=== PATIENT | male | born 1995 | race Hispanic/Latino ===

== ENCOUNTER → 2023-11-26 | Outpatient (CLI) | payer SELFPAY ==
[2023-11-26 17:15] LABS: THYROID STIMULATING HORMONE 1.028 uIU/ML (0.55-4.78)
== END ==
LOC: M LAB 15:48
PROVIDERS: ATTEND Dermatology
DX: L63.8 Other alopecia areata (principal); L56.8 Other specified acute skin changes due to ultraviolet radiation

== ENCOUNTER 2024-04-04 13:13 | Emergency (ER) | payer MEDICAID, SELFPAY ==
[~2024-04-04] VITALS: Ht 175.3 cm; Wt 98.4 kg
[2024-04-04 14:15] LABS: BASO # 0.1 10^3/uL (0.0-0.2); BASO % 0.7 % (0.0-1.0); EOS # 0.2 10^3/uL (0.0-0.5); EOS % 2.1 % (0.0-3.0); HEMATOCRIT 43.9 % (42.0-52.0); HEMOGLOBIN 15.2 g/dl (13.5-17.5); LYMPH # 2.7 10^3/uL (1.5-5.0); LYMPH % 36.7 % (24.0-44.0); MEAN CORPUSCULAR HEMOGLOBIN 30.6 pg (27.0-33.0); MEAN CORPUSCULAR HGB CONC 34.6 g/dl (32.0-36.5); MEAN CORPUSCULAR VOLUME 88.3 fl (80.0-96.0); MONO # 0.6 10^3/uL (0.0-0.8); MONO % 8.6 % (2.0-8.0); NEUTROPHILS # 3.8 10^3/uL (1.5-8.5); NEUTROPHILS % 51.6 % (36.0-66.0); PLATELET COUNT, AUTOMATED 228 10^3/uL (150-450); RED BLOOD COUNT 4.97 10^6/uL (4.30-6.10); WHITE BLOOD COUNT 7.3 10^3/uL (4.0-10.0)
[2024-04-04 14:33] LABS: INR 0.88; PROTHROMBIN TIME 12.3 SECONDS (12.5-14.5)
[2024-04-04 14:37] LABS: BLOOD UREA NITROGEN 12 MG/DL (9-23); CARBON DIOXIDE LEVEL 29 MMOL/L (20-31); CHLORIDE LEVEL 107 MMOL/L (98-107); CREATININE FOR GFR 0.84 MG/DL (0.70-1.30); GLOMERULAR FILTRATION RATE > 60.0 (>60); GLUCOSE, FASTING 98 MG/DL (60-100); POTASSIUM SERUM 4.3 MMOL/L (3.5-5.1); SODIUM LEVEL 140 MMOL/L (136-145)
[2024-04-04 15:09] LABS: HIV 1&2 SCREEN NEGATIVE (NEGATIVE)
[2024-04-04 15:37] LABS: Trichomonas vaginalis (AMP) NOT DETECTED (NEGATIVE)
[2024-04-04 16:01] LABS: GC DNA AMPLIFICATION NEGATIVE (NEGATIVE)
[2024-04-04] MEDS ORDERED: cefTRIAXone 500MG VIAL IM ONE (16:25)
[2024-04-04] MEDS ORDERED: LIDOCAINE 1% SDV 5ML VIAL DILUENT ONE (16:25)
[2024-04-04] MEDS ORDERED: DOXY100T PO (16:30)
[2024-04-04] MEDS: DOXYCYCLINE HYCLATE 100MG TABLET PO ONE (17:58)
[2024-04-04 18:09] VITALS: BP 124/74; TEMP 97.3; O2SAT 98
== END 2024-04-04 18:13 | disposition home or self-care (01) ==
LOC: M ED 13:13
DX: A74.9 Chlamydial infection, unspecified (principal); Z88.8 Allergy status to other drugs, medicaments and biological substances